=== PATIENT | male | born 1995 | race Caucasian/White ===

== ENCOUNTER 2024-07-22 01:45 | Emergency (ER) | payer OTHER ==
[2024-07-22] MEDS: Fluorescein 1 MG Ophth Strip EYERT ONE (02:24)
[2024-07-22] MEDS: Proparacaine 0.5% Ophth Soln 15 ML Bottle EYERT ONE (02:24)
== END 2024-07-22 02:36 | disposition home or self-care (01) ==
LOC: DL.ED 01:45
DX: T26.41XA Burn of right eye and adnexa, part unspecified, initial encounter (principal); T31.0 Burns involving less than 10% of body surface
CPT/HCPCS: 99282; 99283

== ENCOUNTER 2024-11-25 21:26 | Emergency (ER) | payer OTHER | END 2024-11-25 21:51 | disposition home or self-care (01) | LOC: DL.ED 21:26 | DX: S81.851A Open bite, right lower leg, initial encounter (principal); W54.0XXA Bitten by dog, initial encounter | CPT/HCPCS: 99282; 99283 ==

== ENCOUNTER 2025-03-02 02:18 | Emergency (ER) | payer OTHER | END 2025-03-02 03:31 | disposition home or self-care (01) | LOC: DL.ED 02:18 | DX: S63.91XA Sprain of unspecified part of right wrist and hand, initial encounter (principal); Z88.1 Allergy status to other antibiotic agents; Z88.2 Allergy status to sulfonamides; X50.9XXA Other and unspecified overexertion or strenuous movements or postures, initial encounter | CPT/HCPCS: 29125; 73120-RT; 99282; 99283 ==